=== PATIENT | female | born 1970 | race Caucasian/White ===

== ENCOUNTER 2022-03-22 17:44 | Emergency (ER) | payer BC ==
[~2022-03-22] VITALS: Ht 167.6 cm; Wt 86.4 kg
[2022-03-22 18:31] VITALS: BP 121/76
[2022-03-22] MEDS ORDERED: amox tr/potassium clavulanate 875/125mg TAB PO ONE (20:35)
[2022-03-22] MEDS ORDERED: TETanus/Pertussis (Acell)/Diphther VAC/PF (Tdap-Adult) 0.5ml syringe IMVAC ONE (20:35)
[2022-03-22] MEDS ORDERED: AMOX-117 PO (20:38)
== END 2022-03-22 21:10 | disposition home or self-care (01) ==
LOC: ER 17:45
DX: S51.852A Open bite of left forearm, initial encounter (principal); S51.851A Open bite of right forearm, initial encounter; W54.0XXA Bitten by dog, initial encounter; Y93.89 Activity, other specified; Y92.89 Other specified places as the place of occurrence of the external cause; Y99.8 Other external cause status
CPT/HCPCS: 90471; 90715; 99283; J7030; A6258; A6449

== ENCOUNTER 2023-04-27 14:13 | Emergency (ER) | payer BC ==
[~2023-04-27] VITALS: Ht 167.6 cm; Wt 77.3 kg
[2023-04-27 14:26] VITALS: BP 144/103; PULSE 110; RESP 19; TEMP 98.6; O2SAT 96
== END 2023-04-27 15:15 ==
LOC: ER 14:14
DX: Z04.1 Encounter for examination and observation following transport accident (principal)
CPT/HCPCS: 99283

== ENCOUNTER 2024-06-10 07:13 | Inpatient (IN) | payer BC ==
[~2024-06-10] VITALS: Ht 167.6 cm; Wt 81.0 kg
[2024-06-10] MEDS: normal saline 1000ML IV soln IVB ONE (07:45)
[2024-06-10] MEDS: metoclopramide 5 mg/ml inj IV ONE (07:45)
[2024-06-10 07:58] LABS: HEMOGLOBIN 12.6 g/dl (12.0-16.0); LYMPHOCYTES # (AUTO) 0.3 X10'3 (1.1-4.8); MONOCYTES # (AUTO) 0.2 X10'3 (0-0.9); NEUTROPHILS # (AUTO) 2.5 X10'3 (1.8-7.7); WHITE BLOOD COUNT 3.1 X10'3 (4.5-11.0)
[2024-06-10 08:04] LABS: BASOPHILS % (AUTO) 0.3 % (0-1); EOSINOPHILS % (AUTO) 0.2 % (0-6); LYMPHOCYTES % (AUTO) 10.9 % (21-51); MEAN CORPUSCULAR HEMOGLOBIN 31.3 PG (27.0-31.0); MEAN CORPUSCULAR HGB CONC 34.1 g/dL (33.0-36.5); MEAN CORPUSCULAR VOLUME 91.7 FL (78-98); MEAN PLATELET VOLUME 8.5 FL (7.4-10.4); MONOCYTES % (AUTO) 7.5 % (2-12); NEUTROPHILS % (AUTO) 81.1 % (42-75); PLATELET COUNT 74 X10'3 (140-440); RED BLOOD COUNT 4.04 X10'6 (4.20-5.60); RED CELL DISTRIBUTION WIDTH 16.5 % (11.5-14.5)
[2024-06-10 08:09] LABS: ALANINE AMINOTRANSFERASE 44 U/L (12-78); ALBUMIN 4.2 G/DL (3.4-5.0); ALBUMIN/GLOBULIN RATIO 1.3 (1.1-1.5); ALKALINE PHOSPHATASE 116 IU/L (46-116); ANION GAP 17 (8-16); ASPARTATE AMINO TRANSFERASE 52 U/L (10-37); BILIRUBIN,DIRECT 0.2 MG/DL (0-0.3); BILIRUBIN,TOTAL 0.5 MG/DL (0.1-1.0); BLOOD UREA NITROGEN 7 MG/DL (7-18); BUN/CREATININE RATIO 12.7 (10.0-20.0); CALCIUM 8.3 MG/DL (8.5-10.1); CHLORIDE 94 MMOL/L (99-107); CREATININE 0.55 MG/DL (0.40-0.90); ETHANOL 24 MG/DL (<10); GLUCOSE 117 MG/DL (70-104); LIPASE 26 U/L (16-77); SODIUM 135 MMOL/L (135-145); TOTAL CARBON DIOXIDE 23.6 MMOL/L (24-32); TOTAL PROTEIN 7.5 G/DL (6.4-8.2); eCRCL 107 ML/MIN; eGFR > 90 ML/MIN
[2024-06-10 08:13] LABS: POTASSIUM 2.5 MMOL/L (3.5-5.1)
[2024-06-10] MEDS ORDERED: potassium Cl 20mEq/100mL bag 100 ML IV ONE (08:20)
[2024-06-10 08:28] LABS: INR 1.1 INR; PROTHROMBIN TIME 11.1 SECONDS (9.0-12.0)
[2024-06-10] MEDS: potassium CL 10mEq/100ml bag 100 ML IV SCH (08:42)
[2024-06-10] MEDS: ondansetron/PF 4mg/2ml inj IV ONE (08:42)
[2024-06-10] MEDS: LORazepam 2 mg/ml vial IV ONE (08:43)
[2024-06-10 09:08] LABS: MAGNESIUM 1.3 MG/DL (1.5-2.4)
[2024-06-10] MEDS ORDERED: HYDROcodone/acetaminophen 10/325mg tab PO PRN (09:25)
[2024-06-10] MEDS ORDERED: haloperidol lactate 5mg/ml inj IM PRN ×2 (09:25→14:40)
[2024-06-10] MEDS ORDERED: magnesium hydroxide 30ml (MOM) UD suspension PO PRN (09:25)
[2024-06-10] MEDS ORDERED: potassium Cl 20 mEq SR tablet PO PRN (09:25)
[2024-06-10] MEDS ORDERED: magnesium sulf-water 4G/100mL 100 ML IV PRN (09:25)
[2024-06-10] MEDS ORDERED: acetaminophen 325mg tablet PO PRN (09:25)
[2024-06-10] MEDS ORDERED: potassium Cl 40MEQ/1/2NS 520ml 520 ML IV PRN (09:25)
[2024-06-10] MEDS ORDERED: magnesium sulf-water 2g/50mL 50 ML IV PRN (09:25)
[2024-06-10] MEDS ORDERED: morphine 2 MG/ML inj. syringe IV PRN ×2 (09:25)
[2024-06-10] MEDS ORDERED: HYDROcodone/acetaminophen 5mg/325mg tablet PO PRN (09:25)
[2024-06-10] MEDS ORDERED: mag hydrox/Alum hydrox/simeth 30ml oral suspension PO PRN (09:25)
[2024-06-10] MEDS ORDERED: normal saline 1000ml 1,000 ML IV SCH (09:25)
[2024-06-10] MEDS: magnesium sulf-water 2g/50mL 50 ML IV ONE (10:07)
[2024-06-10] MEDS: chlordiazePOXIDE 25mg capsule PO SCH ×2 (11:00→12:29)
[2024-06-10] MEDS: thiamine 100mg/ml 2ml inj. IV SCH (12:29)
[2024-06-10] MEDS ORDERED: thiamine 100mg/ml 2ml inj. IV SCH (13:00)
[2024-06-10] MEDS: dextrose 5%-water 1,000 ML IV SCH (14:18)
[2024-06-10 14:22] LABS: POTASSIUM 3.4 MMOL/L (3.5-5.1)
[2024-06-10] MEDS ORDERED: haloperidol 5mg tablet PO PRN (14:40)
[2024-06-10] MEDS: losartan 25mg tablet PO SCH (15:15)
[2024-06-10 15:18] LABS: ABG HCO3 26.9 mmol/L (21.0-28.0); ABG OXYGEN SATURATION 94.5 % (94.0-98.0); ABG PCO2 (T) 31.5 mmHg (32.0-45.0); ABG PH (T) 7.549 (7.350-7.450); ABG PO2 (T) 66.4 mmHg (83.0-108.0); ALLEN'S TEST POSITIVE; FCOHb 0.3 % (0.5-1.5); FHHb 5.5 % (0.0-5.0); FMetHb 0.3 % (0.0-1.5); FO2Hb 93.9 % (94.0-98.0); MODE ROOM AIR
[2024-06-10] MEDS ORDERED: IRBE75TA15 PO (16:00)
[2024-06-10] MEDS ORDERED: SERT-433 PO (16:00)
[2024-06-10] MEDS ORDERED: LEVO125T8 PO (16:00)
[2024-06-10 17:41] LABS: URINE AMPHETAMINE SCREEN NEGATIVE (Neg); URINE BARBITUATE SCREEN NEGATIVE (Neg); URINE BENZODIAZEPINES SCREEN NEGATIVE (Neg); URINE CANNABINOID SCREEN NEGATIVE (Neg); URINE COCAINE SCREEN NEGATIVE (Neg); URINE METHADONE SCREEN NEGATIVE (Neg); URINE OPIATE SCREEN NEGATIVE (Neg); URINE PHENCYCLIDINE SCREEN NEGATIVE (Neg)
[2024-06-10 19:04] LABS: MAGNESIUM 2.1 MG/DL (1.5-2.4); POTASSIUM 3.2 MMOL/L (3.5-5.1)
[2024-06-10] MEDS: heparin, porcine 5000 units/ml vial SQ SCH (20:00)
[2024-06-10] MEDS: K and/or MAG REPLACEMENT MC SCH (20:00)
[2024-06-10] MEDS: potassium Cl 20 mEq SR tablet PO PRN (20:10)
[2024-06-10] MEDS: docusate sod 100mg capsule PO SCH (20:10)
[2024-06-10 23:24] LABS: POTASSIUM 3.5 MMOL/L (3.5-5.1)
[2024-06-11 03:23] LABS: HEMOGLOBIN 13.3 g/dl (12.0-16.0)
[2024-06-11 03:28] LABS: HEMATOCRIT 38.7 % (35.0-45.0); MEAN CORPUSCULAR HEMOGLOBIN 31.8 PG (27.0-31.0); MEAN CORPUSCULAR HGB CONC 34.3 g/dL (33.0-36.5); MEAN CORPUSCULAR VOLUME 92.6 FL (78-98); MEAN PLATELET VOLUME 8.8 FL (7.4-10.4); PLATELET COUNT 69 X10'3 (140-440); RED BLOOD COUNT 4.18 X10'6 (4.20-5.60); RED CELL DISTRIBUTION WIDTH 16.2 % (11.5-14.5); WHITE BLOOD COUNT 2.9 X10'3 (4.5-11.0)
[2024-06-11 03:58] LABS: ALANINE AMINOTRANSFERASE 43 U/L (12-78); ALBUMIN/GLOBULIN RATIO 1.2 (1.1-1.5); ALKALINE PHOSPHATASE 119 IU/L (46-116); ANION GAP 7 (8-16); ASPARTATE AMINO TRANSFERASE 50 U/L (10-37); BILIRUBIN,TOTAL 0.9 MG/DL (0.1-1.0); BLOOD UREA NITROGEN 7 MG/DL (7-18); BUN/CREATININE RATIO 10.4 (10.0-20.0); CALCIUM 8.7 MG/DL (8.5-10.1); CHLORIDE 98 MMOL/L (99-107); CREATININE 0.67 MG/DL (0.40-0.90); GLUCOSE 120 MG/DL (70-104); POTASSIUM 3.2 MMOL/L (3.5-5.1); SODIUM 135 MMOL/L (135-145); THYROID STIMULATING HORMONE 12.94 ulU/ml (0.34-4.50); TOTAL CARBON DIOXIDE 29.7 MMOL/L (24-32); TOTAL PROTEIN 7.4 G/DL (6.4-8.2); eCRCL 88 ML/MIN; eGFR > 90 ML/MIN
[2024-06-11 04:23] LABS: ANISOCYTOSIS 1+; MICROCYTOSIS 1+; PLATELET ESTIMATE DECREASED; TOTAL CELLS COUNTED 100
[2024-06-11 04:24] LABS: STOMATOCYTES 1+
[2024-06-11 07:45] VITALS: BP 152/98; PULSE 88; RESP 18; TEMP 98.1; O2SAT 99
[2024-06-11] MEDS ORDERED: chlordiazePOXIDE 25mg capsule PO SCH (11:00)
[2024-06-11] MEDS: folic acid 1mg/0.2ml inj IV SCH (12:14)
[2024-06-11 15:20] VITALS: BP 148/105; PULSE 107; RESP 16; TEMP 98.3; O2SAT 97
[2024-06-11 18:00] VITALS: BP 145/106; PULSE 95; RESP 16; TEMP 98.2; O2SAT 98
[2024-06-11] MEDS: chlordiazePOXIDE 25mg capsule PO SCH (18:10)
[2024-06-11] MEDS: ondansetron/PF 4mg/2ml inj IV PRN (19:11)
[2024-06-11 20:18] VITALS: RESP 16; O2SAT 98
[2024-06-11 22:00] VITALS: BP 120/74; PULSE 104; RESP 14; TEMP 97.9; O2SAT 99
[2024-06-12 05:56] LABS: BASOPHILS % (AUTO) 0.5 % (0-1); EOSINOPHILS # (AUTO) 0.1 X10'3 (0-0.9); HEMOGLOBIN 13.4 g/dl (12.0-16.0); LYMPHOCYTES # (AUTO) 0.9 X10'3 (1.1-4.8); LYMPHOCYTES % (AUTO) 29.8 % (21-51); MONOCYTES # (AUTO) 0.3 X10'3 (0-0.9); NEUTROPHILS # (AUTO) 1.8 X10'3 (1.8-7.7); RED BLOOD COUNT 4.21 X10'6 (4.20-5.60)
[2024-06-12 05:58] LABS: EOSINOPHILS % (AUTO) 2.7 % (0-6); HEMATOCRIT 39.2 % (35.0-45.0); MEAN CORPUSCULAR HEMOGLOBIN 31.8 PG (27.0-31.0); MEAN CORPUSCULAR HGB CONC 34.1 g/dL (33.0-36.5); MEAN CORPUSCULAR VOLUME 93.1 FL (78-98); MEAN PLATELET VOLUME 9.5 FL (7.4-10.4); MONOCYTES % (AUTO) 8.4 % (2-12); NEUTROPHILS % (AUTO) 58.6 % (42-75); PLATELET COUNT 71 X10'3 (140-440); RED CELL DISTRIBUTION WIDTH 16.1 % (11.5-14.5); WHITE BLOOD COUNT 3.1 X10'3 (4.5-11.0)
[2024-06-12 06:14] LABS: ALANINE AMINOTRANSFERASE 49 U/L (12-78); ALBUMIN 3.6 G/DL (3.4-5.0); ALBUMIN/GLOBULIN RATIO 1.1 (1.1-1.5); ALKALINE PHOSPHATASE 107 IU/L (46-116); ANION GAP 8 (8-16); ASPARTATE AMINO TRANSFERASE 63 U/L (10-37); BILIRUBIN,TOTAL 0.9 MG/DL (0.1-1.0); BLOOD UREA NITROGEN 13 MG/DL (7-18); CALCIUM 8.7 MG/DL (8.5-10.1); CHLORIDE 102 MMOL/L (99-107); CREATININE 0.65 MG/DL (0.40-0.90); GLUCOSE 103 MG/DL (70-104); POTASSIUM 3.6 MMOL/L (3.5-5.1); SODIUM 138 MMOL/L (135-145); TOTAL CARBON DIOXIDE 27.9 MMOL/L (24-32); TOTAL PROTEIN 6.8 G/DL (6.4-8.2); eCRCL 90 ML/MIN; eGFR > 90 ML/MIN
[2024-06-12 07:35] VITALS: RESP 15; O2SAT 99
[2024-06-12 08:05] VITALS: BP 147/101; PULSE 98; RESP 15; TEMP 98.2; O2SAT 99
[2024-06-12] MEDS: chlordiazePOXIDE 25mg capsule PO SCH (11:38)
[2024-06-12 13:50] VITALS: BP 105/77; PULSE 112; RESP 14; TEMP 98.7; O2SAT 97
[2024-06-12] MEDS ORDERED: potassium Cl 20 mEq SR tablet PO STA (14:05)
[2024-06-13] MEDS ORDERED: chlordiazePOXIDE 25mg capsule PO PRN (11:05)
== END 2024-06-12 16:08 | disposition home or self-care (01) | DRG 641 ==
LOC: ER 07:14 → ED HOLD 09:33 → EDBEDREQ 10:02 → ORTHO 4S 06-11 07:45
PROVIDERS: ADMIT Nurse Practitioner Family; ATTEND Nurse Practitioner Family
DX: E87.6 Hypokalemia (principal); F10.239 Alcohol dependence with withdrawal, unspecified; E83.42 Hypomagnesemia; Z96.652 Presence of left artificial knee joint; E03.9 Hypothyroidism, unspecified; D69.6 Thrombocytopenia, unspecified; F32.A Depression, unspecified; R94.31 Abnormal electrocardiogram [ECG] [EKG]; I10 Essential (primary) hypertension; Z85.3 Personal history of malignant neoplasm of breast
CPT/HCPCS: 36415; 36600; 80048; 80053; 80076; 80305; 80320; 81002; 82803; 83690; 83735; 84132; 84439; 84443; 84480; 85007; 85018; 85025; 85610; 87081; 93005; 96374; 96375; 99285; A4615; G0378; J2060; J2405; J2765; J3411; J3480; J3490; J7030; J7042; J7070

== ENCOUNTER 2025-05-10 13:17 | Emergency (ER) | payer BC ==
[~2025-05-10] VITALS: Ht 167.6 cm; Wt 77.3 kg
[~2025-05-10 13:17] MED LIST: IRBE75TA15 PO; LEVO125T8 PO; SERT-433 PO
[2025-05-10 13:20] VITALS: TEMP 98.7
--- NOTE | 2025-05-10 14:01 | RADIOLOGY REPORT ---
CLINICAL INFORMATION: 55 years old, Female; HEADSTRIKE WITH ETOH AND RECENT SURGERY. TECHNIQUE: Axial imaging was obtained through the brain without contrast. Coronal and sagittal reformatted images were obtained, reviewed, and stored. Images were reviewed in brain and bone windows. All CT scans at this medical facility are performed using dose modulation techniques as appropriate to a performed exam including the following: Automated exposure control was utilized; adjustment of the MA and/or KV according to patient size; and use of iterative reconstruction technique. CTDIvol = 53.54 mGy DLP = 954.37 mGy-cm COMPARISON: None FINDINGS: There is no acute intracranial hemorrhage. No mass effect or midline shift. The ventricles and sulci are within normal limits in size for age. Basal cisterns are patent. There are salvatore holes in the left parietal calvarium. There are small metallic densities in the left temporal calvaria bilaterally. Paranasal sinuses and mastoid air cells are clear. IMPRESSION: 1. No CT evidence of acute intracranial abnormality. 2. Nonacute findings as described above.
--- NOTE | 2025-05-10 14:02 | RADIOLOGY REPORT ---
EXAM: CT CT CERVICAL SPINE HISTORY: HEADSTRIKE WITH ETOH AND RECENT SURGERY COMPARISON: None TECHNIQUE: Noncontrast axial CT images of the cervical spine were performed. Sagittal and coronal reformatted images were obtained. This CT exam was performed using one or more of the following dose reduction techniques: Automated exposure control, adjustment of the mA and/or kv according to patient size, or the use of iterative reconstruction techniques. Radiation Dose: CT Dose: CTDI volume is 20.98 mGy. Dose-length product is 464.06 mGy*cm FINDINGS: No fracture or listhesis are identified about the cervical spine. There is moderate to severe degenerative disc disease and facet arthropathy. There is wklg-qk-senyxtio spinal canal stenosis at C5-C6 and mild spinal canal stenosis at C6-C7. There is significant neural foraminal stenosis at C3-C4 bilaterally, C5-C6 on the right, C6-C7 bilaterally. IMPRESSION: 1. No fracture of the cervical spine. 2. Degenerative disc disease and facet arthropathy with significant neural foraminal stenosis as detailed above. These findings may correspond with upper extremity radicular symptoms in the bilateral C4, right C6, and bilateral C7 nerve root distributions. 3. Zbnc-[id number]-[id number] spinal canal stenosis C5-C6.
[2025-05-10 14:09] LABS: MEAN PLATELET VOLUME 8.0 FL (7.4-10.4); RED CELL DISTRIBUTION WIDTH 16.9 % (11.5-14.5)
[2025-05-10 14:28] LABS: CREATININE 0.55 MG/DL (0.40-0.90); TOTAL CARBON DIOXIDE 25.5 MMOL/L (24-32); eCRCL 106 ML/MIN; eGFR > 90 ML/MIN
[2025-05-10 14:40] VITALS: BP 157/106; PULSE 113; RESP 18; O2SAT 97
--- NOTE | 2025-05-10 14:45 | Physician Documentation ---
History of Present Illness ~ Chief Complaint: Mechanical Fall Stated Complaint: FALL HIT HEAD Time Seen by MD: 14:31 Primary Medical Doctor: Short HPI This a 55-year-old very pleasant female presents today after having a fall this morning. Patient reportedly drank 1/5 of hard alcohol prior to her fall. States does not believe she hit her head at all and fell from her bed to the floor. Incidentally the patient also had a fall earlier this month on April 22 per she had a brain bleed and was transferred to [facility] where she required brain surgery. After successful surgery she was sent to rehab.. Ultimately she checked herself out. Came back to [place] She drank excessive amount of alcohol this morning which led to her fall. states she wants to go to [facility] for alcohol rehab Tetanus within 5 Years?: No Medication Reconciliation Allergies: Coded Allergies: No Known Allergies (Unverified , 06/10/24) Scheduled Irbesartan (Irbesartan), 1-2 TAB PO DAILY, (Reported) Levothyroxine Sodium (Levothyroxine Sodium), 1 TAB PO QAM, (Reported) Sertraline HCl (Sertraline HCl), 1 TAB PO DAILY, (Reported) Past Medical History Past Medical History: No Pertinent History Past Surgical History: noncontributory Lives In: Home Review of Systems All Other Systems at this time: Reviewed and Negative ROS As stated above in the HPI, otherwise all systems are reviewed and negative. Physical Exam Vital Signs: Temperature: 98.7, Heart Rate: 116, Respiratory Rate: 18, BP: 151/109, Pulse Oximetry: 96, Weight: 77.270 Oxygen Flow Rate: 0 Physical Exam General: Alert, no apparent distress. HEENT: PERRL, EOMI, no injection, moist mucous membranes. abrasion left cheek moderate swelling Neck: Full range of motion. Respiratory: Lungs clear, no respiratory distress. Chest: No accessory muscle use. Cardiovascular: Regular rate and rhythm, no murmurs. Gastrointestinal: Soft, nontender, nondistended. Bowels sounds present. Extremities: Normal range of motion, no deformity. Neurologic: Oriented x4. Psychiatric: Normal mood and affect. Skin: Normal color, warm and dry. No edema, no ecchymosis. Progress Results/Orders Results/Orders Orders - YURI GOODE NP Substance Use Navigator (05/10/25 14:58) Vital Signs 05/10/25 05/10/25 13:20 14:40 Temp 98.7 Pulse 116 113 Resp 18 18 B/P (MAP) 151/109 157/106 (123) Pulse Ox 96 97 O2 Flow Rate 0 0 Laboratory Tests Test 05/10/25 13:55 White Blood Count 6.4 Red Blood Count 4.37 Hemoglobin 13.4 Hematocrit 39.6 Mean Corpuscular Volume 90.7 Mean Corpuscular Hemoglobin 30.8 Mean Corpuscular Hemoglobin Concent 33.9 Red Cell Distribution Width 16.9 H Platelet Count 255 Mean Platelet Volume 8.0 Neutrophils (%) (Auto) 65.6 Lymphocytes (%) (Auto) 27.5 Monocytes (%) (Auto) 5.3 Eosinophils (%) (Auto) 0.7 Basophils (%) (Auto) 0.9 Neutrophils # (Auto) 4.2 Lymphocytes # (Auto) 1.8 Monocytes # (Auto) 0.3 Eosinophils # (Auto) 0.0 Basophils # (Auto) 0.1 CBC Comment Sodium Level 140 Potassium Level 4.3 Chloride Level 101 Carbon Dioxide Level 25.5 Anion Gap 14 Blood Urea Nitrogen 9 Creatinine 0.55 Estimated GFR/1.73 m2 > 90 BUN/Creatinine Ratio 16.4 Glucose Level 118 H Calcium Level 8.9 Total Bilirubin 0.3 Aspartate Amino Transf (AST/SGOT) 37 Alanine Aminotransferase (ALT/SGPT) 44 Alkaline Phosphatase 136 H Total Protein 8.1 Albumin 4.0 Globulin 4.1 Albumin/Globulin Ratio 1.0 L Lipase 41 Chemistry Comments Medical Decision Making Findings Patient is alert oriented and has no current complaints of pain for her CTs came back negative for any intracranial abnormality. Laboratory values were unremarkable. Discussed at length with the patient that ETOH is her primary concern right now. Verbalized understanding. She wants to attend [facility] for alcohol. See any reason to pursue any further evaluation as she does not present with any infectious disease process in his behaving normally and has full recollection of the event. Light sensitivity headaches nausea or vomiting Differential Dx:Considerations: Include: Closed head injury, Cardiac injury, Fracture(s), Intraabdominal injury, Pneumothorax, Cerebral contusion, Pulmonary contusion, Spine injury, Tracheal injury, Urological injury, Vascular injury, Abrasion(s), Contusion(s), Foreign body(s), Hematoma(s), Laceration(s), Encephalopathy, Other Departure Disposition: 01 HOME / SELF CARE / HOMELESS Impression: Primary Impression: Fall Additional Impression: ETOH abuse Condition: Stable Discharge Instructions: Alcohol Intoxication, [id number], Fall Prevention in the Home, Adult, [id number] Additional Instructions: Please stopped drinking alcohol in his hazardous to your health as evidenced by your recent falls and surgeries. follow up with [facility] as discussed Referrals: NO PRIMARY CARE PROVIDER (PCP) Signature Scribe Signature: g Attestation: Scribed for Yuri Goode Oil Dipper by Yuri Cui NP . 05/10/25 22:51 YURI GOODE NP May 10, 2025 14:45
== END 2025-05-10 15:02 | disposition home or self-care (01) ==
LOC: ER 13:17
DX: S00.81XA Abrasion of other part of head, initial encounter (principal); F10.10 Alcohol abuse, uncomplicated; R51.9 Headache, unspecified; Y90.9 Presence of alcohol in blood, level not specified; Z79.899 Other long term (current) drug therapy; W06.XXXA Fall from bed, initial encounter; Y93.89 Activity, other specified; Y92.89 Other specified places as the place of occurrence of the external cause; Y99.8 Other external cause status
CPT/HCPCS: 36415; 70450; 72125; 80053; 83690; 85025; 99284; L0172